=== PATIENT | female | born 1975 | race Caucasian/White ===

== ENCOUNTER → 2016-04-27 | Outpatient (CLI) | payer MEDICARE, MEDICAID ==
[~2016-04-27] MED LIST: /ESCI10TA PO; /ESOM40CA OR; ATIV0.5T3 PO; PAIN TOP; PROZ20CA11 PO; SOMA350T PO; TRAZ50TA PO; VOLT1GEL2 TOP; ZANT150T OR; ZOLO100T OR; ZOLO100T PO
[2016-04-27 13:00] LABS: BASO % 1.2 % (0.0-1.0); EOS # 0.2 K/mm3 (0.0-0.50); EOS % 4.4 % (0.0-3.0); LYMPH # 1.8 K/mm3 (1.5-4.5); LYMPH % 44.1 % (24.0-44.0); MEAN CORPUSCULAR HEMOGLOBIN 30.1 pg (27.0-33.0); MEAN CORPUSCULAR VOLUME 88.5 fl (80.0-96.0); MONO # 0.2 K/mm3 (0.0-0.8); NEUTROPHILS # 1.8 K/mm3 (1.8-7.7); NEUTROPHILS % 43.2 % (36.0-66.0); WHITE BLOOD COUNT 4.1 K/mm3 (4.0-10.0)
[2016-04-27 13:17] LABS: ALBUMIN/GLOBULIN RATIO 1.21 (1.00-1.93); ALKALINE PHOSPHATASE 68 U/L (45-117); ALT/SGPT 29 U/L (12-78); ANION GAP 8 MEQ/L (8-16); AST/SGOT 18 U/L (15-37); BILIRUBIN,TOTAL 0.3 MG/DL (0.2-1.0); BLOOD UREA NITROGEN 10 MG/DL (7-18); CALCIUM LEVEL 9.2 MG/DL (8.5-10.1); CARBON DIOXIDE LEVEL 29 MEQ/L (21-32); CHLORIDE LEVEL 105 MEQ/L (98-107); CHOLESTEROL LEVEL 209 MG/DL (<200); GLOMERULAR FILTRATION RATE > 60.0 (>58); GLUCOSE, FASTING 76 MG/DL (70-105); POTASSIUM SERUM 3.8 MEQ/L (3.5-5.1); SODIUM LEVEL 142 MEQ/L (136-145); TOTAL PROTEIN 7.3 GM/DL (6.4-8.2); TRIGLYCERIDES LEVEL 109 MG/DL (<150)
== END ==
LOC: M WUC 08:37
PROVIDERS: ATTEND Physician Assistant Medical
DX: E78.2 Mixed hyperlipidemia (principal); E55.9 Vitamin D deficiency, unspecified

== ENCOUNTER 2016-06-07 19:39 | Emergency (ER) | payer BC, MEDICARE, MEDICAID ==
[2016-06-07] MEDS ORDERED: ONDANSETRON 4MG/2ML VIAL (J2405) As Ordered ONE (21:46)
[2016-06-07] MEDS ORDERED: ONDANSETRON 4 MG ORAL DISINTEGRATING TAB (S0181) As Ordered ONE (23:03)
--- NOTE | 2016-06-07 23:13 | EDDOCDS ---
Nurse's Notes [facility] Name: Germaine Silva Age: 41 yrs Sex: Female : 1975 Arrival Date: 06/07/2016 Time: 19:39 Bed I1 / M1 Private MD: Cheri Harper C Diagnosis: Nausea and vomiting-likely viral gastroenteritis;Diarrhea, unspecified Presentation: 06/07 19:50 Presenting complaint: Patient states: nausea, vomiting, diarrhea, and chills. Adult af2 Sepsis Screening: The patient does not have new or worsening altered mentation. Patient's respiratory rate is less than 22. Systolic blood pressure is greater than 100. Patient has a qSOFA score of 0- Negative Sepsis Screen. Suicide/Homicide risk assessment- the patient denies having any suicidal and/or homicidal ideations and does not present with any other emotional, behavioral or mental health complaints. Status: Patient is not a coordinator of library services or dependent. Transition of care: patient was not received from another setting of care. 19:50 Acuity: DANE Level 3 af2 19:50 Method Of Arrival: Walkin/Carried/Asstd af2 Triage Assessment: 19:52 General: Appears in no apparent distress, Behavior is cooperative. Pain: Location: af2 abdomen Pain currently is 8 out of 10 on a pain scale. Pt Declines HIV testing. GI: Reports diarrhea, lower abdominal pain, nausea, vomiting. Historical: - Allergies: Erythromycin; - Home Meds: 1. Nexium 40 mg Oral cpDR 1 cap 2. Zantac 150 mg Oral cap 1 cap 2 times per day - PMHx: GERD; Arthritis; bulging disk; - PSHx: none; - Social history: Smoking status: Patient states was never smoker of tobacco. No barriers to communication noted, The patient speaks fluent Slovak. - Family history: Not pertinent. - : The pt / caregiver states he / she is not on anticoagulants. Home medication list is obtained from the patient. - Exposure Risk Screening:: None identified. Screenin:48 Screening information is obtained from the patient. Fall risk: No risks identified. jo3 Assistance ADL's: requires no assistance with activities of daily living. Abuse/DV Screen: The patient / caregiver reports he/she is: not in a situation that causes fear, pain or injury. Nutritional screening: No deficits noted. Advance Directives: There is no active DNR order. home support is adequate. Assessment: 20:50 General: Appears in no apparent distress, Behavior is appropriate for age, cooperative, sls1 Pt reports " feels like she is going to pass out" pt stood and laid on stretcher, denies sob or chest pain, reports feels faint due to vomiting. Awaiting provider eval. 21:48 General: Appears in no apparent distress, comfortable, Behavior is appropriate for age, jo3 cooperative, pleasant. Neurological: Level of Consciousness is awake, alert, Oriented to person, place, time. Respiratory: Airway is patent Respiratory effort is even, unlabored. GI: Abdomen is non- distended Bowel sounds present X 4 quads. Abd is soft and non tender X 4 quads. Reports nausea, vomiting. Derm: Skin is pink, warm & dry. 23:09 General: Appears in no apparent distress, comfortable, Behavior is cooperative, relayed [facility] request for zofran to take home to provider, medication obtained. States will meet her at exit for ride home. Vital Signs: 19:41 BP 95 / 67; Pulse 107; Resp 18 S; Temp 97.4(T); Pulse Ox 98% on R/A; Weight 67.13 kg gr2 (R); Height 5 ft. 4 in. (162.56 cm) (M); Pain 7/10; 20:15 BP 111 / 65; Pulse 99; Resp 18; Pulse Ox 100% on R/A; Pain 8/10; sew 22:36 BP 122 / 69; Pulse 87; Resp 18; Temp 98.8(O); Pulse Ox 98% on R/A; Pain 2/10; rn1 19:41 Body Mass Index 25.40 (67.13 kg, 162.56 cm) gr2 Vitals: 19:41 Log In Time: June 07, 2016 at 19:41. gr2 ED Course: 19:41 Patient visited by Edis Hernandze. gr2 19:41 Cheri Harper is Private Physician. gr2 19:41 Patient moved to Waiting gr2 19:43 Patient visited by Edis Hernandez. gr2 19:44 Patient moved to Pre RCE gr2 19:51 Triage Initiated af2 19:53 Patient visited by Sharron Metcalf RN. af2 20:14 Patient moved to Triage 1 sls1 20:15 Patient visited by Kelsey Vidales. sew 20:51 Patient visited by Gayle Resendiz RN. sls1 21:11 Benjamin Pandey PA-C is [facility]. ar2 21:11 Markell Hampton DO is Attending Physician. ar2 21:11 Patient visited by Benjamin Pandey PA-C. ar2 21:21 Patient moved to I1 / M1 af2 21:24 Sharron Metcalf,RN is Primary Nurse. af2 21:29 [facility] Payment Agreement was scanned into [employer] and attached to record. gjb 21:48 The patient / caregiver is instructed regarding the plan of care and ED course. jo3 21:48 Inserted saline lock: 20 gauge in left hand. No procedures done that require assistance.jo3 21:49 Patient visited by Heather Sneed RN. jo3 22:25 Cheri Harper is Referral Physician. ar2 23:09 Discontinued lock intact, bleeding controlled, pressure dressing applied, No cjh redness/swelling at site. Administered Medications: 21:47 Drug: Ondansetron 4 mg [ondansetron HCl 2 mg/mL intravenous solution (2 mL)] Route: jo3 IVP; Site: left hand; 21:48 Drug: NS 0.9% 1000 ml [sodium chloride 0.9 % intravenous solution] Route: IV; Rate: jo3 bolus; Site: left hand; 23:02 CANCELLED (Duplicate Order): Ondansetron ODT Oral Disintegrating Tablet 4 mg PO once cj 23:09 Drug: Ondansetron ODT 4 mg [ondansetron 4 mg disintegrating tablet (1 tabs)] Route: PO; [facility] Order Results: There are currently no results for this order. Outcome: 22:25 Discharge ordered by Provider. ar2 23:09 Discharge Assessment: Patient awake, alert and oriented x 3. No cognitive and/or cjh functional deficits noted. Patient verbalized understanding of disposition instructions. patient administered narcotics - no. The following High Risk Discharge criteria are identified: None. Discharged to home ambulatory. Condition: good Condition: stable Condition: improved. Discharge instructions given to patient, Instructed on discharge instructions, follow up and referral plans. medication usage, Demonstrated understanding of instructions, medications, Pt was receptive of discharge instructions/ teaching. Prescriptions given X 1. No special radiology studies were completed. Property :Personal belongings accompany Pt. 23:12 Patient left the ED. [facility] Signatures: Heather Sneed,RN RN Benjamin Green, JUICE PAGayle Lyn, RN RN sls1 Xena SmithRN RN [facility] Flash, Edis Aranda gr2 Sharron Metcalf RN RN af2 Kelechi Allen rn1 Nanda Johnson Corrections: (The following items were deleted from the chart) 23:12 23:09 General: Appears in no apparent distress, comfortable, Behavior is cooperative, [facility] relayed request for zofran to take home to provider, medication obtained. [facility] MTDD
--- NOTE | 2016-06-07 23:13 | EDDOCDS ---
Physician Documentation [facility] Name: Germaine Silva Age: 41 yrs Sex: Female : 1975 Arrival Date: 06/07/2016 Time: 19:39 Bed I1 / M1 Private MD: Cheri Harper C Disposition: 06/07/16 22:25 Discharged to Home/Self Care. Impression: Nausea and vomiting - likely viral gastroenteritis, Diarrhea, unspecified. - Condition is Stable. - Discharge Instructions: Viral Gastroenteritis. - Prescriptions for ZOFRAN ODT 4 mg Oral - dissolve 1 tablet by ORAL route every 8 hours As needed do not chew, do not swallow whole; 10 tablet. - Medication Reconciliation, Local Pharmacy Hours form. - Follow up: Cheri Harper; When: Call to arrange an appointment; Reason: Recheck today's complaints, Continuance of care. Follow up: Emergency Department; When: As needed; Reason: Worsening of conditions. - Problem is new. - Symptoms have improved. Historical: - Allergies: Erythromycin; - Home Meds: 1. Nexium 40 mg Oral cpDR 1 cap 2. Zantac 150 mg Oral cap 1 cap 2 times per day - PMHx: GERD; Arthritis; bulging disk; - PSHx: none; - Social history: Smoking status: Patient states was never smoker of tobacco. No barriers to communication noted, The patient speaks fluent Telugu. - Family history: Not pertinent. - : The pt / caregiver states he / she is not on anticoagulants. Home medication list is obtained from the patient. - Exposure Risk Screening:: None identified. Vital Signs: 06/07 19:41 BP 95 / 67; Pulse 107; Resp 18 S; Temp 97.4(T); Pulse Ox 98% on R/A; Weight 67.13 kg / gr2 148 lbs (R); Height 5 ft. 4 in. (162.56 cm) (M); Pain 7/10; 20:15 BP 111 / 65; Pulse 99; Resp 18; Pulse Ox 100% on R/A; Pain 8/10; sew 22:36 BP 122 / 69; Pulse 87; Resp 18; Temp 98.8(O); Pulse Ox 98% on R/A; Pain 2/10; rn1 19:41 Body Mass Index 25.40 (67.13 kg, 162.56 cm) gr2 MDM: 21:21 IV Saline Lock ordered. ar2 21:21 NS 0.9% 1000 ml IV at bolus once ordered. ar2 21:21 Ondansetron 4 mg IVP once ordered. ar2 21:28 Financial registration complete. [facility] : [facility] Payment Agreement was scanned into [employer] and attached to record. [facility] 23:02 Ondansetron ODT Oral Disintegrating Tablet 4 mg PO once; dispense one to go home [facility] ordered. Administered Medications: 21:47 Drug: Ondansetron 4 mg [ondansetron HCl 2 mg/mL intravenous solution (2 mL)] Route: jo3 IVP; Site: left hand; 21:48 Drug: NS 0.9% 1000 ml [sodium chloride 0.9 % intravenous solution] Route: IV; Rate: jo3 bolus; Site: left hand; 23:02 CANCELLED (Duplicate Order): Ondansetron ODT Oral Disintegrating Tablet 4 mg PO once [facility] 23:09 Drug: Ondansetron ODT 4 mg [ondansetron 4 mg disintegrating tablet (1 tabs)] Route: PO; [facility] Signatures: Heather Sneed RN RN jo3 Benjamin Pandey PA-C PA-C ar2 Xena Smith RN RN [facility] Sharron MetcalfRN RN roxanne2 Nanda Johnson The chart was reviewed and I authenticate all verbal orders and agree with the evaluation and treatment provided.Corrections: (The following items were deleted from the chart) 23:02 23:01 Ondansetron ODT Oral Disintegrating Tablet 4 mg PO once ordered. [address] Attachments: 21:29 [facility] Payment Agreement [facility] MTDD
--- NOTE | 2016-06-10 00:13 | EDDOCDS ---
Nurse's Notes [facility] Name: Germaine Sliva Age: 41 yrs Sex: Female : 1975 Arrival Date: 06/07/2016 Time: 19:39 Bed I1 / M1 Private MD: Cheri Harper C Diagnosis: Nausea and vomiting-likely viral gastroenteritis;Diarrhea, unspecified Presentation: 06/07 19:50 Presenting complaint: Patient states: nausea, vomiting, diarrhea, and chills. Adult af2 Sepsis Screening: The patient does not have new or worsening altered mentation. Patient's respiratory rate is less than 22. Systolic blood pressure is greater than 100. Patient has a qSOFA score of 0- Negative Sepsis Screen. Suicide/Homicide risk assessment- the patient denies having any suicidal and/or homicidal ideations and does not present with any other emotional, behavioral or mental health complaints. Status: Patient is not a career services officer or dependent. Transition of care: patient was not received from another setting of care. 19:50 Acuity: DANE Level 3 af2 19:50 Method Of Arrival: Walkin/Carried/Asstd af2 Triage Assessment: 19:52 General: Appears in no apparent distress, Behavior is cooperative. Pain: Location: af2 abdomen Pain currently is 8 out of 10 on a pain scale. Pt Declines HIV testing. GI: Reports diarrhea, lower abdominal pain, nausea, vomiting. Historical: - Allergies: Erythromycin; - Home Meds: 1. Nexium 40 mg Oral cpDR 1 cap 2. Zantac 150 mg Oral cap 1 cap 2 times per day - PMHx: GERD; Arthritis; bulging disk; - PSHx: none; - Social history: Smoking status: Patient states was never smoker of tobacco. No barriers to communication noted, The patient speaks fluent [place]. - Family history: Not pertinent. - : The pt / caregiver states he / she is not on anticoagulants. Home medication list is obtained from the patient. - Exposure Risk Screening:: None identified. Screenin:48 Screening information is obtained from the patient. Fall risk: No risks identified. jo3 Assistance ADL's: requires no assistance with activities of daily living. Abuse/DV Screen: The patient / caregiver reports he/she is: not in a situation that causes fear, pain or injury. Nutritional screening: No deficits noted. Advance Directives: There is no active DNR order. home support is adequate. Assessment: 20:50 General: Appears in no apparent distress, Behavior is appropriate for age, cooperative, sls1 Pt reports " feels like she is going to pass out" pt stood and laid on stretcher, denies sob or chest pain, reports feels faint due to vomiting. Awaiting provider eval. 21:48 General: Appears in no apparent distress, comfortable, Behavior is appropriate for age, jo3 cooperative, pleasant. Neurological: Level of Consciousness is awake, alert, Oriented to person, place, time. Respiratory: Airway is patent Respiratory effort is even, unlabored. GI: Abdomen is non- distended Bowel sounds present X 4 quads. Abd is soft and non tender X 4 quads. Reports nausea, vomiting. Derm: Skin is pink, warm & dry. 23:09 General: Appears in no apparent distress, comfortable, Behavior is cooperative, relayed [facility] request for zofran to take home to provider, medication obtained. States will meet her at exit for ride home. Vital Signs: 19:41 BP 95 / 67; Pulse 107; Resp 18 S; Temp 97.4(T); Pulse Ox 98% on R/A; Weight 67.13 kg gr2 (R); Height 5 ft. 4 in. (162.56 cm) (M); Pain 7/10; 20:15 BP 111 / 65; Pulse 99; Resp 18; Pulse Ox 100% on R/A; Pain 8/10; sew 22:36 BP 122 / 69; Pulse 87; Resp 18; Temp 98.8(O); Pulse Ox 98% on R/A; Pain 2/10; rn1 19:41 Body Mass Index 25.40 (67.13 kg, 162.56 cm) gr2 Vitals: 19:41 Log In Time: June 07, 2016 at 19:41. gr2 ED Course: 19:41 Patient visited by Edis Hernandez. gr2 19:41 Cheri Harper is Private Physician. gr2 19:41 Patient moved to Waiting gr2 19:43 Patient visited by Edis Hernandez. gr2 19:44 Patient moved to Pre RCE gr2 19:51 Triage Initiated af2 19:53 Patient visited by Sharron Metcalf RN. af2 20:14 Patient moved to Triage 1 sls1 20:15 Patient visited by Kelsey Vidales. sew 20:51 Patient visited by Gayle Resendiz RN. sls1 21:11 Benjamin Pand[facility]-C [facility]. ar2 21:11 Markell Hampton DO is Attending Physician. ar2 21:11 Patient visited by Benjamin Pandey PA-C. ar2 21:21 Patient moved to I1 / M1 af2 21:24 Sharron Metcalf,RN is Primary Nurse. af2 21:29 [facility] Payment Agreement was scanned into [employer] and attached to record. gjb 21:48 The patient / caregiver is instructed regarding the plan of care and ED course. jo3 21:48 Inserted saline lock: 20 gauge in left hand. No procedures done that require assistance.jo3 21:49 Patient visited by Heather Sneed RN. jo3 22:25 Cheri Harper is Referral Physician. ar2 23:09 Discontinued lock intact, bleeding controlled, pressure dressing applied, No cjh redness/swelling at site. 06/08 12:32 T-Sheet-- Draft Copy was scanned into [employer] and attached to record. gb Administered Medications: 06/07 21:47 Drug: Ondansetron 4 mg [ondansetron HCl 2 mg/mL intravenous solution (2 mL)] Route: jo3 IVP; Site: left hand; 21:48 Drug: NS 0.9% 1000 ml [sodium chloride 0.9 % intravenous solution] Route: IV; Rate: jo3 bolus; Site: left hand; 23:02 CANCELLED (Duplicate Order): Ondansetron ODT Oral Disintegrating Tablet 4 mg PO once cjh 23:09 Drug: Ondansetron ODT 4 mg [ondansetron 4 mg disintegrating tablet (1 tabs)] Route: PO; cjh Order Results: There are currently no results for this order. Outcome: 22:25 Discharge ordered by Provider. ar2 23:09 Discharge Assessment: Patient awake, alert and oriented x 3. No cognitive and/or cjh functional deficits noted. Patient verbalized understanding of disposition instructions. patient administered narcotics - no. The following High Risk Discharge criteria are identified: None. Discharged to home ambulatory. Condition: good Condition: stable Condition: improved. Discharge instructions given to patient, Instructed on discharge instructions, follow up and referral plans. medication usage, Demonstrated understanding of instructions, medications, Pt was receptive of discharge instructions/ teaching. Prescriptions given X 1. No special radiology studies were completed. Property :Personal belongings accompany Pt. 23:12 Patient left the ED. [facility] Signatures: Marita Perez, Reg Reg gb Heather Sneed,RN RN jo3 Benjamin Pandey PAAdama PA-Troy monreal2 Gayle Resendiz, RN RN sls1 Xena SmithRN RN [facility] Kelsey Vidales [place] gr2 Sharron MetcalfRN RN af2 Kelechi Allen rn1 Nanda Johnson Corrections: (The following items were deleted from the chart) 23:12 23:09 General: Appears in no apparent distress, comfortable, Behavior is cooperative, [facility] relayed request for zofran to take home to provider, medication obtained. [facility] Chart Complete MTDD
--- NOTE | 2016-06-10 00:13 | EDDOCDS ---
Physician Documentation [facility] Name: Germaine Silva Age: 41 yrs Sex: Female : 1975 Arrival Date: 06/07/2016 Time: 19:39 Bed I1 / M1 Private MD: Cheri Harper C Disposition: 06/07/16 22:25 Discharged to Home/Self Care. Impression: Nausea and vomiting - likely viral gastroenteritis, Diarrhea, unspecified. - Condition is Stable. - Discharge Instructions: Viral Gastroenteritis. - Prescriptions for ZOFRAN ODT 4 mg Oral - dissolve 1 tablet by ORAL route every 8 hours As needed do not chew, do not swallow whole; 10 tablet. - Medication Reconciliation, Local Pharmacy Hours form. - Follow up: Cheri Harper; When: Call to arrange an appointment; Reason: Recheck today's complaints, Continuance of care. Follow up: Emergency Department; When: As needed; Reason: Worsening of conditions. - Problem is new. - Symptoms have improved. Historical: - Allergies: Erythromycin; - Home Meds: 1. Nexium 40 mg Oral cpDR 1 cap 2. Zantac 150 mg Oral cap 1 cap 2 times per day - PMHx: GERD; Arthritis; bulging disk; - PSHx: none; - Social history: Smoking status: Patient states was never smoker of tobacco. No barriers to communication noted, The patient speaks fluent Pashto. - Family history: Not pertinent. - : The pt / caregiver states he / she is not on anticoagulants. Home medication list is obtained from the patient. - Exposure Risk Screening:: None identified. Vital Signs: 06/07 19:41 BP 95 / 67; Pulse 107; Resp 18 S; Temp 97.4(T); Pulse Ox 98% on R/A; Weight 67.13 kg / gr2 148 lbs (R); Height 5 ft. 4 in. (162.56 cm) (M); Pain 7/10; 20:15 BP 111 / 65; Pulse 99; Resp 18; Pulse Ox 100% on R/A; Pain 8/10; sew 22:36 BP 122 / 69; Pulse 87; Resp 18; Temp 98.8(O); Pulse Ox 98% on R/A; Pain 2/10; rn1 19:41 Body Mass Index 25.40 (67.13 kg, 162.56 cm) gr2 MDM: 21:21 IV Saline Lock ordered. ar2 21:21 NS 0.9% 1000 ml IV at bolus once ordered. ar2 21:21 Ondansetron 4 mg IVP once ordered. ar2 21:28 Financial registration complete. gj : [facility] Payment Agreement was scanned into [employer] and attached to record. [facility] 23:02 Ondansetron ODT Oral Disintegrating Tablet 4 mg PO once; dispense one to go home [facility] ordered. 06/08 12:32 T-Sheet-- Draft Copy was scanned into [employer] and attached to record. gb Administered Medications: 06/07 21:47 Drug: Ondansetron 4 mg [ondansetron HCl 2 mg/mL intravenous solution (2 mL)] Route: jo3 IVP; Site: left hand; 21:48 Drug: NS 0.9% 1000 ml [sodium chloride 0.9 % intravenous solution] Route: IV; Rate: jo3 bolus; Site: left hand; 23:02 CANCELLED (Duplicate Order): Ondansetron ODT Oral Disintegrating Tablet 4 mg PO once [facility] 23:09 Drug: Ondansetron ODT 4 mg [ondansetron 4 mg disintegrating tablet (1 tabs)] Route: PO; [facility] Signatures: Marita Perez, Jj Reg Heather DoradoRN RN jo3 Benjamin Pandey PA-C PA-C ar2 Xena Smith RN RN [facility] Sharron Metcalf RN RN roxanne2 Nanda Johnson [facility] The chart was reviewed and I authenticate all verbal orders and agree with the evaluation and treatment provided.Corrections: (The following items were deleted from the chart) 23:02 23:01 Ondansetron ODT Oral Disintegrating Tablet 4 mg PO once ordered. ar2 [facility] Attachments: :29 [facility] Payment Agreement [facility] 06/08 12:32 T-Sheet-- Draft Copy Chart Complete MTDD
--- NOTE | 2016-06-10 00:14 | EDDOCDS ---
Physician Documentation [facility] Name: Germaine Silva Age: 41 yrs Sex: Female : 1975 Arrival Date: 06/07/2016 Time: 19:39 Bed I1 / M1 Private MD: Cheri Harper C Disposition: 06/07/16 22:25 Discharged to Home/Self Care. Impression: Nausea and vomiting - likely viral gastroenteritis, Diarrhea, unspecified. - Condition is Stable. - Discharge Instructions: Viral Gastroenteritis. - Prescriptions for ZOFRAN ODT 4 mg Oral - dissolve 1 tablet by ORAL route every 8 hours As needed do not chew, do not swallow whole; 10 tablet. - Medication Reconciliation, Local Pharmacy Hours form. - Follow up: Cheri Harper; When: Call to arrange an appointment; Reason: Recheck today's complaints, Continuance of care. Follow up: Emergency Department; When: As needed; Reason: Worsening of conditions. - Problem is new. - Symptoms have improved. Historical: - Allergies: Erythromycin; - Home Meds: 1. Nexium 40 mg Oral cpDR 1 cap 2. Zantac 150 mg Oral cap 1 cap 2 times per day - PMHx: GERD; Arthritis; bulging disk; - PSHx: none; - Social history: Smoking status: Patient states was never smoker of tobacco. No barriers to communication noted, The patient speaks fluent Irish. - Family history: Not pertinent. - : The pt / caregiver states he / she is not on anticoagulants. Home medication list is obtained from the patient. - Exposure Risk Screening:: None identified. Vital Signs: 06/07 19:41 BP 95 / 67; Pulse 107; Resp 18 S; Temp 97.4(T); Pulse Ox 98% on R/A; Weight 67.13 kg / gr2 148 lbs (R); Height 5 ft. 4 in. (162.56 cm) (M); Pain 7/10; 20:15 BP 111 / 65; Pulse 99; Resp 18; Pulse Ox 100% on R/A; Pain 8/10; sew 22:36 BP 122 / 69; Pulse 87; Resp 18; Temp 98.8(O); Pulse Ox 98% on R/A; Pain 2/10; rn1 19:41 Body Mass Index 25.40 (67.13 kg, 162.56 cm) gr2 MDM: 21:21 IV Saline Lock ordered. ar2 21:21 NS 0.9% 1000 ml IV at bolus once ordered. ar2 21:21 Ondansetron 4 mg IVP once ordered. ar2 21:28 Financial registration complete. gj : [facility] Payment Agreement was scanned into [employer] and attached to record. [facility] 23:02 Ondansetron ODT Oral Disintegrating Tablet 4 mg PO once; dispense one to go home [facility] ordered. 06/08 12:32 T-Sheet-- Draft Copy was scanned into [employer] and attached to record. gb Administered Medications: 06/07 21:47 Drug: Ondansetron 4 mg [ondansetron HCl 2 mg/mL intravenous solution (2 mL)] Route: jo3 IVP; Site: left hand; 21:48 Drug: NS 0.9% 1000 ml [sodium chloride 0.9 % intravenous solution] Route: IV; Rate: jo3 bolus; Site: left hand; 23:02 CANCELLED (Duplicate Order): Ondansetron ODT Oral Disintegrating Tablet 4 mg PO once [facility] 23:09 Drug: Ondansetron ODT 4 mg [ondansetron 4 mg disintegrating tablet (1 tabs)] Route: PO; [facility] Signatures: Marita Perez, Jj Reg Heather DoradoRN RN jo3 Benjamin Pandey PA-C PA-C ar2 Xena Smith RN RN [facility] Sharron Metcalf RN RN roxanne2 Nanda Johnson [facility] The chart was reviewed and I authenticate all verbal orders and agree with the evaluation and treatment provided.Corrections: (The following items were deleted from the chart) 23:02 23:01 Ondansetron ODT Oral Disintegrating Tablet 4 mg PO once ordered. ar2 [facility] Attachments: :29 [facility] Payment Agreement [facility] 06/08 12:32 T-Sheet-- Draft Copy Chart Complete MTDD
== END 2016-06-07 23:12 | disposition home or self-care (01) ==
LOC: M ED 19:39
DX: A08.4 Viral intestinal infection, unspecified (principal); K21.9 Gastro-esophageal reflux disease without esophagitis; M19.90 Unspecified osteoarthritis, unspecified site; M51.9 Unspecified thoracic, thoracolumbar and lumbosacral intervertebral disc disorder; Z79.899 Other long term (current) drug therapy; Z88.1 Allergy status to other antibiotic agents
CPT/HCPCS: 96374; 99283; J2405

== ENCOUNTER → 2016-06-12 | Outpatient (CLI) | payer BC, MEDICARE, MEDICAID ==
--- NOTE | 2016-06-13 09:22 | REP ---
MRI LUMBAR SPINE WITHOUT CONTRAST: 06/12/2016. Clinical history: Low back pain for a least 5 years. Symptoms not improved with pain injections. Comparison: MRI 05/30/2013, x-ray 11/20/2011. Technique: Sagittal T1, T2 and STIR images with axial T1 and T2 sequences through the lumbar spine. Findings. The normal lordosis is maintained. The vertebral body heights and marrow signal are normal from T11-S1. Disc space is narrowed with slight loss of disc water signal at L5-S1 as a new finding compared to the prior examination. The other disc space heights are maintained except for slight narrowing at L3-4. Disc water signal maintained at L4-5 and above. T11-12, T12-L1 and L1-2 disc levels show no disc bulge or herniation and no spinal or foraminal stenosis. The conus terminates at the T12-L1 level. At L2-3, there is no significant disc bulge or herniation and no spinal or foraminal stenosis. At L 3-4, some hypertrophic facet change and ligamentum flavum hypertrophy, but the cross-sectional area of the canal was adequate. Minimal disc bulge flattening the ventral thecal sac, but the cross-sectional area of the canal was ample. Foramina are also ample. At L4-5, minimal disc bulge flattening the ventral thecal sac. Ligamentum flavum and facet hypertrophy with combined factors slightly diminishing the central canal cross-sectional area. Foramina are adequate with no nerve root compression and perineural fat still in place. At L5-S1, there is minimal disc bulge centrally, but no central canal or foraminal stenosis. Ligamentum flavum hypertrophy noted, but cross-sectional area of the canal ample and the foramina are adequate. Impression: 1. There is some degenerative disc change with minimal spinal stenosis at the L4-5 level, but the foramina were adequate. No nerve root compression in the central canal. 2. Minimal degenerative changes at the L3-4 and L5-S1 levels, not causing any significant spinal or foraminal stenosis. 3. Some new mild disc desiccation and loss of disc space height at L5-S1. Some hypertrophic facet changes of the lower most lumbar levels, unchanged. No new findings otherwise. Stable. Signed by Cruz Parrish MD 06/13/2016 09:29 P
== END ==
LOC: M RAD 14:58
PROVIDERS: ATTEND Physician Assistant Medical
DX: M54.5 Low back pain (principal)

== ENCOUNTER → 2016-09-10 | Outpatient (REF) | payer BC, MEDICARE, MEDICAID | LOC: M LAB REF 12:37 | PROVIDERS: ATTEND Surgery | DX: D17.23 Benign lipomatous neoplasm of skin and subcutaneous tissue of right leg (principal) ==

== ENCOUNTER 2016-09-15 09:15 | Outpatient (RCR) | payer BC, MEDICARE, MEDICAID | END 2016-09-16 | LOC: M PT 09:15 | PROVIDERS: ATTEND Physician Assistant Medical | DX: Z51.89 Encounter for other specified aftercare (principal); M54.5 Low back pain | CPT/HCPCS: 97110; 97140; 97162; G0283; G8978; G8979 ==

== ENCOUNTER → 2016-10-09 | Outpatient (CLI) | payer BC, MEDICARE, MEDICAID ==
[2016-10-09 14:13] LABS: ALBUMIN 4.2 GM/DL (3.2-5.2); ALKALINE PHOSPHATASE 48 U/L (45-117); ALT/SGPT 24 U/L (12-78); ANION GAP 9 MEQ/L (8-16); AST/SGOT 20 U/L (15-37); BILIRUBIN,TOTAL 0.6 MG/DL (0.2-1.0); BLOOD UREA NITROGEN 7 MG/DL (7-18); CALCIUM LEVEL 9.3 MG/DL (8.5-10.1); CARBON DIOXIDE LEVEL 27 MEQ/L (21-32); CHLORIDE LEVEL 104 MEQ/L (98-107); CHOLESTEROL LEVEL 199 MG/DL (<200); CREATININE FOR GFR 0.89 MG/DL (0.55-1.02); GLOMERULAR FILTRATION RATE > 60.0 (>58); GLUCOSE, FASTING 80 MG/DL (70-105); POTASSIUM SERUM 3.9 MEQ/L (3.5-5.1); SODIUM LEVEL 140 MEQ/L (136-145); TOTAL PROTEIN 7.7 GM/DL (6.4-8.2); TRIGLYCERIDES LEVEL 58 MG/DL (<150)
== END ==
LOC: M SMT 09:46
PROVIDERS: ATTEND Physician Assistant Medical
DX: E78.2 Mixed hyperlipidemia (principal); E55.9 Vitamin D deficiency, unspecified; E03.9 Hypothyroidism, unspecified

== ENCOUNTER 2016-10-15 13:00 | Outpatient (RCR) | payer BC, MEDICARE, MEDICAID | END 2016-10-16 | LOC: M PT 13:00 | PROVIDERS: ATTEND Physician Assistant Medical | DX: Z51.89 Encounter for other specified aftercare (principal); M54.5 Low back pain | CPT/HCPCS: 97110; 97140; G0283; G8978; G8979 ==

== ENCOUNTER 2016-10-22 09:13 | Outpatient (RCR) | payer BC, MEDICARE, MEDICAID | END 2016-11-16 | LOC: M PT 09:13 | PROVIDERS: ATTEND Physician Assistant Medical | DX: M54.5 Low back pain (principal) ==

== ENCOUNTER → 2017-06-23 | Outpatient (CLI) | payer BC, MEDICARE, MEDICAID | LOC: M RAD 13:53 | DX: Z12.31 Encounter for screening mammogram for malignant neoplasm of breast (principal) | CPT/HCPCS: 77067 ==

== ENCOUNTER → 2017-06-25 | Outpatient (CLI) | payer BC, MEDICARE, MEDICAID ==
[2017-06-25 10:34] LABS: ALBUMIN 4.2 GM/DL (3.2-5.2); ALBUMIN/GLOBULIN RATIO 1.31 (1.00-1.93); ALKALINE PHOSPHATASE 64 U/L (45-117); ALT/SGPT 32 U/L (12-78); ANION GAP 7 MEQ/L (8-16); AST/SGOT 25 U/L (7-37); BILIRUBIN,TOTAL 0.6 MG/DL (0.2-1.0); BLOOD UREA NITROGEN 10 MG/DL (7-18); CALCIUM LEVEL 8.9 MG/DL (8.5-10.1); CARBON DIOXIDE LEVEL 29 MEQ/L (21-32); CHLORIDE LEVEL 105 MEQ/L (98-107); CHOLESTEROL LEVEL 177 MG/DL (<200); CHOLESTEROL RISK RATIO 2.723 (<5); CREATININE FOR GFR 0.77 MG/DL (0.55-1.30); FREE T4 0.98 NG/DL (0.76-1.46); GLOMERULAR FILTRATION RATE > 60.0 (>58); GLUCOSE, FASTING 67 MG/DL (70-100); HDL CHOLESTEROL 65 MG/DL (>40); LDL CHOLESTEROL 98.8 MG/DL (<100); NON-HDL-C 112 MG/DL; POTASSIUM SERUM 3.7 MEQ/L (3.5-5.1); SODIUM LEVEL 141 MEQ/L (136-145); TOTAL PROTEIN 7.4 GM/DL (6.4-8.2); TRIGLYCERIDES LEVEL 66 MG/DL (<150)
[2017-06-25 10:42] LABS: BASO # 0.1 10^3/uL (0.0-0.2); BASO % 0.9 % (0.0-1.0); EOS # 0.1 10^3/uL (0.0-0.50); EOS % 1.1 % (0.0-3.0); HEMATOCRIT 36.9 % (36.0-47.0); HEMOGLOBIN 12.8 g/dl (12.0-16.0); IMMATURE GRANULOCYTE % 0.3 % (0-3.0); LYMPH # 2.4 10^3/uL (1.5-4.5); LYMPH % 37.5 % (24.0-44.0); MEAN CORPUSCULAR HEMOGLOBIN 30.5 pg (27.0-33.0); MEAN CORPUSCULAR HGB CONC 34.7 g/dl (32.0-36.5); MEAN CORPUSCULAR VOLUME 87.9 fl (80.0-96.0); MONO # 0.5 10^3/uL (0.0-0.8); MONO % 7.8 % (0.0-5.0); NEUTROPHILS # 3.3 10^3/uL (1.8-7.7); NEUTROPHILS % 52.4 % (36.0-66.0); PLATELET COUNT, AUTOMATED 268 10^3/uL (150-450); RED CELL DISTRIBUTION WIDTH 11.6 % (11.5-14.5); WHITE BLOOD COUNT 6.3 10^3/uL (4.0-10.0)
[2017-06-25 11:37] LABS: TOTAL 25(OH) VITAMIN D 27.6 NG/ML (30.0-100.0)
[2017-06-28 00:06] LABS: H PYLORI STOOL ANTIGEN Negative (Negative)
== END ==
LOC: M LAB 08:23
DX: E55.9 Vitamin D deficiency, unspecified (principal)

== ENCOUNTER → 2018-07-14 | Outpatient (REF) | payer BC, MEDICARE ==
[2018-07-14 12:58] LABS: HEMATOCRIT 39.4 % (36.0-47.0); HEMOGLOBIN 13.1 g/dl (12.0-15.5); MEAN CORPUSCULAR HEMOGLOBIN 29.9 pg (27.0-33.0); MEAN CORPUSCULAR HGB CONC 33.2 g/dl (32.0-36.5); PLATELET COUNT, AUTOMATED 256 10^3/uL (150-450); RED BLOOD COUNT 4.38 10^6/uL (4.00-5.40); WHITE BLOOD COUNT 4.8 10^3/uL (4.0-10.0)
[2018-07-14 13:36] LABS: ALBUMIN 4.4 GM/DL (3.2-5.2); ALT/SGPT 25 U/L (12-78); BILIRUBIN,TOTAL 0.6 MG/DL (0.2-1.0); BLOOD UREA NITROGEN 8 MG/DL (7-18); CALCIUM LEVEL 9.2 MG/DL (8.5-10.1); CARBON DIOXIDE LEVEL 29 MEQ/L (21-32); CHLORIDE LEVEL 103 MEQ/L (98-107); CHOLESTEROL LEVEL 213 MG/DL (<200); CHOLESTEROL RISK RATIO 2.878 (<5); FREE T4 1.09 NG/DL (0.76-1.46); GLOMERULAR FILTRATION RATE > 60.0 (>58); GLUCOSE, FASTING 72 MG/DL (70-100); HDL CHOLESTEROL 74 MG/DL (>40); LDL CHOLESTEROL 122 MG/DL (<100); NON-HDL-C 139 MG/DL; POTASSIUM SERUM 3.6 MEQ/L (3.5-5.1); SODIUM LEVEL 139 MEQ/L (136-145); TOTAL PROTEIN 7.4 GM/DL (6.4-8.2); TRIGLYCERIDES LEVEL 85 MG/DL (<150)
[2018-07-14 13:38] LABS: TOTAL 25(OH) VITAMIN D 26.2 NG/ML (30.0-100.0)
== END ==
LOC: M SFHCPLAZ 08:42
PROVIDERS: ATTEND Physician Assistant
DX: Z13.220 Encounter for screening for lipoid disorders (principal); F41.9 Anxiety disorder, unspecified; E55.9 Vitamin D deficiency, unspecified

== ENCOUNTER → 2018-07-21 | Outpatient (CLI) | payer BC, MEDICARE ==
[~2018-07-21] MED LIST changes: -/ESCI10TA PO; -/ESOM40CA OR; +LEXA1TAB PO; +NEXI1CAP3 OR
--- NOTE | 2018-07-21 10:14 | REPMRS ---
Patient History The patient states she has not had a clinical breast exam in over a year. No known family history of cancer. Taking hormonal contraceptives for 3 years. 3D TOMOSYNTHESIS WAS PERFORMED. Digital Mammo Screening Bilat: July 21, 2018 - Exam #: [id number] Bilateral CC and MLO view(s) were taken. Technologist: Radha Guaman, Technologist Prior study comparison: June 23, 2017, bilateral digital mammo screening bilat performed at [facility]. August 30, 2013, digital mammo diagnostic bilateral performed at [facility]. FINDINGS: The breast tissue is heterogeneously dense. This may lower the sensitivity of mammography. There has been no change in the appearance of the mammogram from the prior studies. There is a moderate amount of residual fibroglandular tissue which is fairly symmetric. There is no interval development of dominant mass, areas of architectural distortion, or clustered microcalcification typical of malignancy. Assessment: BI-RADS/ACR category 1 mammogram. Negative Mammogram. Recommendation Routine screening mammogram in 1 year (for women over age 40). This mammogram was interpreted with the aid of an FDA-approved computer-aided dectection system. Electronically Signed By: Medardo Lugo MD 07/21/18 [id number]
== END ==
LOC: M RAD 09:31
PROVIDERS: ATTEND Physician Assistant
DX: Z12.31 Encounter for screening mammogram for malignant neoplasm of breast (principal)

== ENCOUNTER 2018-11-08 10:57 | Emergency (ER) | payer BC, MEDICARE ==
[~2018-11-08] VITALS: Ht 162.6 cm; Wt 64.5 kg
[2018-11-08] MEDS ORDERED: ACETAMINOPHEN 500 MG TAB PO ONE (12:15)
[2018-11-08] MEDS ORDERED: NS 1,000 ML IV ONE (12:15)
[2018-11-08] MEDS ORDERED: KETOROLAC 30 MG/ML VIAL (J1885) IV ONE (12:15)
[2018-11-08] MEDS ORDERED: METOCLOPRAMIDE INJ 10MG/2ML VIAL (J2765) IV ONE (12:15)
[2018-11-08] MEDS ORDERED: diphenhydrAMINE INJ 50MG/ML VIAL (J1200) IV ONE (12:15)
[2018-11-08 13:53] VITALS: BP 119/71
== END 2018-11-08 14:08 | disposition home or self-care (01) ==
LOC: M ED 10:57
DX: G44.209 Tension-type headache, unspecified, not intractable (principal); F41.9 Anxiety disorder, unspecified; F32.9 Major depressive disorder, single episode, unspecified; R12 Heartburn; Z97.5 Presence of (intrauterine) contraceptive device; Z82.0 Family history of epilepsy and other diseases of the nervous system; Z88.1 Allergy status to other antibiotic agents
CPT/HCPCS: 96374; 96375; 99284; J1200; J1885; J2765

== ENCOUNTER → 2019-01-07 | Outpatient (REF) | payer BC, MEDICARE ==
[2019-01-07 21:36] LABS: BASO # 0.1 10^3/uL (0.0-0.2); BASO % 0.9 % (0.0-1.0); EOS # 0.1 10^3/uL (0.0-0.5); EOS % 1.5 % (0.0-3.0); HEMATOCRIT 36.4 % (36.0-47.0); HEMOGLOBIN 12.3 g/dl (12.0-15.5); LYMPH # 2.7 10^3/uL (1.5-5.0); MEAN CORPUSCULAR HEMOGLOBIN 30.1 pg (27.0-33.0); MEAN CORPUSCULAR HGB CONC 33.8 g/dl (32.0-36.5); MEAN CORPUSCULAR VOLUME 89.2 fl (80.0-96.0); MONO # 0.5 10^3/uL (0.0-0.8); MONO % 6.6 % (0.0-5.0); NEUTROPHILS # 3.5 10^3/uL (1.5-8.5); NEUTROPHILS % 50.9 % (36.0-66.0); PLATELET COUNT, AUTOMATED 238 10^3/uL (150-450); RED BLOOD COUNT 4.08 10^6/uL (4.00-5.40); WHITE BLOOD COUNT 6.8 10^3/uL (4.0-10.0)
[2019-01-07 22:08] LABS: ALBUMIN 3.6 GM/DL (3.2-5.2); ALT/SGPT 27 U/L (12-78); BILIRUBIN,TOTAL 0.3 MG/DL (0.2-1.0); BLOOD UREA NITROGEN 10 MG/DL (7-18); CARBON DIOXIDE LEVEL 25 MEQ/L (21-32); CHLORIDE LEVEL 107 MEQ/L (98-107); CREATININE FOR GFR 0.76 MG/DL (0.55-1.30); GLOMERULAR FILTRATION RATE > 60.0 (>58); GLUCOSE, FASTING 94 MG/DL (70-100); POTASSIUM SERUM 3.7 MEQ/L (3.5-5.1); SODIUM LEVEL 140 MEQ/L (136-145); TOTAL PROTEIN 6.6 GM/DL (6.4-8.2)
== END ==
LOC: M LAB REF 13:57
PROVIDERS: ATTEND Physician Assistant
DX: R60.9 Edema, unspecified (principal)

== ENCOUNTER → 2019-01-20 | Outpatient (REF) | payer BC, MEDICARE ==
[2019-01-25 08:20] LABS: HPV HYBRID CAPTURE II Positive (Negative)
== END ==
LOC: M SFHCPLAZ 14:22
PROVIDERS: ATTEND Family Medicine
DX: Z12.4 Encounter for screening for malignant neoplasm of cervix (principal); R87.810 Cervical high risk human papillomavirus (HPV) DNA test positive
CPT/HCPCS: 87624; G0123

== ENCOUNTER → 2020-03-22 | Outpatient (REF) | payer BC, MEDICARE | LOC: M SFHCWAGY 14:14 | PROVIDERS: ATTEND Family Medicine | DX: Z86.19 Personal history of other infectious and parasitic diseases (principal) ==

== ENCOUNTER → 2020-03-29 | Outpatient (REF) | payer BC, MEDICARE ==
[2020-03-29 13:16] LABS: CHOLESTEROL RISK RATIO 2.632 (<5); THYROID STIMULATING HORMONE 1.25 uIU/ML (0.358-3.740)
== END ==
LOC: M PLALAB 08:28
PROVIDERS: ATTEND Family Medicine
DX: N92.6 Irregular menstruation, unspecified (principal); Z13.220 Encounter for screening for lipoid disorders

== ENCOUNTER → 2020-04-29 | Outpatient (CLI) | payer SELFPAY | LOC: M LABSMTC 13:25 | PROVIDERS: ATTEND Pediatrics | DX: Z20.822 Contact with and (suspected) exposure to COVID-19 (principal) ==

== ENCOUNTER → 2020-05-14 | Outpatient (REF) | payer BC, MEDICARE | LOC: M SFHCPLAZ 13:44 | PROVIDERS: ATTEND Family Medicine | DX: D23.5 Other benign neoplasm of skin of trunk (principal) ==

== ENCOUNTER → 2020-10-25 | Outpatient (CLI) | payer BC, MEDICARE | LOC: M WHC 11:10 | PROVIDERS: ATTEND Family Medicine | DX: R92.2 Inconclusive mammogram (principal); N63.15 Unspecified lump in the right breast, overlapping quadrants ==

== ENCOUNTER → 2020-11-05 | Outpatient (CLI) | payer BC ==
--- NOTE | 2020-11-05 15:28 | REP ---
INDICATION: ADDITIONAL VIEWS RT BREAST. COMPARISON: Comparison mammography October 25, 2020 was BI-RADS category 0 for a possible nodular density in the retroareolar region. Comparison is also made with the July 21, 2018 and June 23, 2017 prior images. TECHNIQUE: Magnified focal spot-compression CC, mL, and MLO views of the right breast are obtained. 3D tomography in the mL projection is deployed. This mammogram was interpreted with the aid of an FDA-approved computer-aided detection system. FINDINGS: Breast parenchyma is again noted to be heterogeneously dense. The area in question on the screening study compresses away to stromal elements which are felt to be unchanged from the remote prior comparison studies. No suspicious nodule or camilo density is appreciated. No spiculation or microcalcification is seen. The Volpara volumetric breast density pattern is C. : IMPRESSION: BIRADS/ACR category 1 negative right breast mammographic findings.. This patient's Tyrer-Cuzick lifetime breast cancer risk assessment score is 12.2%. RECOMMENDATION: Repeat screening mammography recommended 1 year (for women over 40). The patient letter being requested is M1 dense. <Electronically signed by Stan Guadarrama > 11/05/20 [id number]
== END ==
LOC: M WHC 14:49
PROVIDERS: ATTEND Family Medicine
DX: R92.2 Inconclusive mammogram (principal)

== ENCOUNTER → 2021-08-22 | Outpatient (CLI) | payer BC, MEDICARE | LOC: M WHC 10:24 | PROVIDERS: ATTEND Advanced Practice Midwife | DX: Z30.431 Encounter for routine checking of intrauterine contraceptive device (principal) ==

== ENCOUNTER → 2021-09-03 | Outpatient (CLI) | payer BC, MEDICARE ==
[~2021-09-03] MED LIST changes: +ESOM40CA35 PO; +IBUP80TA PO; +PARO5TAB PO
== END ==
LOC: M LABSMTC 09:11
PROVIDERS: ATTEND Anesthesiology
DX: Z01.812 Encounter for preprocedural laboratory examination (principal); Z20.822 Contact with and (suspected) exposure to COVID-19

== ENCOUNTER 2021-09-05 06:59 | Day surgery (SDC) | payer BC, MEDICARE ==
[~2021-09-05] VITALS: Ht 162.6 cm; Wt 67.5 kg
[~2021-09-05 06:59] MED LIST changes: +LR 1,000 ML IV ONE
[2021-09-05] MEDS ORDERED: LIDOCAINE 2% 100MG/5ML SDV (FOR ANES.) As Ordered ONE (07:25)
[2021-09-05] MEDS ORDERED: dexameTHASONE 4 MG/ML 1ML VIAL (J1100 PER 1MG) As Ordered ONE (07:25)
[2021-09-05] MEDS ORDERED: MIDAZOLAM INJ 2MG/2ML VIAL (J2250 PER 1MG) As Ordered ONE (07:25)
[2021-09-05] MEDS ORDERED: ONDANSETRON 4MG/2ML VIAL As Ordered ONE (07:25)
[2021-09-05] MEDS ORDERED: KETOROLAC 60MG 2ML VIAL As Ordered ONE (07:25)
[2021-09-05] MEDS ORDERED: propofoL 200 MG/20 ML VIAL As Ordered ONE (07:25)
[2021-09-05] MEDS ORDERED: fentaNYL 100 MCG/2 ML INJECTION As Ordered ONE (07:26)
[2021-09-05] MEDS ORDERED: LIDOCAINE 5% OINT 30GM TUBE As Ordered ONE (07:33)
[2021-09-05] MEDS ORDERED: LEVONORGESTREL 52MG (MIRENA) IUD As Ordered ONE (07:39)
[2021-09-05] MEDS ORDERED: SCOPOLAMINE 1MG TRANSDERMAL PATCH TOP ONE (07:45)
[2021-09-05 07:56] LABS: HEMATOCRIT 39.8 % (36.0-47.0); HEMOGLOBIN 13.5 g/dl (12.0-15.5); MEAN CORPUSCULAR HEMOGLOBIN 30.5 pg (27.0-33.0); MEAN CORPUSCULAR HGB CONC 33.9 g/dl (32.0-36.5); PLATELET COUNT, AUTOMATED 249 10^3/uL (150-450); RED BLOOD COUNT 4.42 10^6/uL (4.00-5.40); WHITE BLOOD COUNT 4.2 10^3/uL (4.0-10.0)
[2021-09-05] MEDS ORDERED: oxyCODONE 5MG TAB PO PRN (09:50)
[2021-09-05] MEDS ORDERED: HYDROMORPHONE HCL 0.5 MG/ 0.5 ML SYRINGE (J1170 PER 1) IV PRN (09:50)
[2021-09-05] MEDS ORDERED: ONDANSETRON 4MG/2ML VIAL IV PRN (09:50)
[2021-09-05] MEDS ORDERED: LR 1,000 ML IV SCH (09:50)
[2021-09-05] MEDS ORDERED: fentaNYL 100 MCG/2 ML INJECTION IV PRN (09:50)
[2021-09-05 10:21] VITALS: BP 110/68
== END 2021-09-05 10:24 | disposition home or self-care (01) ==
LOC: M SDC 06:59
PROVIDERS: ATTEND Obstetrics & Gynecology
DX: T83.39XA Other mechanical complication of intrauterine contraceptive device, initial encounter (principal); R12 Heartburn; Z88.8 Allergy status to other drugs, medicaments and biological substances; Z79.899 Other long term (current) drug therapy
CPT/HCPCS: 36415; 58300; 58301; 81025; 85027; 86850; 86900; 86901; J1100; J1885; J2250; J2405; J3010; J7298

== ENCOUNTER → 2022-03-02 | Outpatient (CLI) | payer BC, MEDICARE ==
[~2022-03-02] MED LIST changes: -LR 1,000 ML IV ONE
== END ==
LOC: M LABSMTC 11:34
PROVIDERS: ATTEND Anesthesiology
DX: Z01.812 Encounter for preprocedural laboratory examination (principal); Z11.52 Encounter for screening for COVID-19

== ENCOUNTER → 2022-04-22 | Outpatient (CLI) | payer BC, MEDICARE ==
[2022-04-22 12:41] LABS: BASO # 0.1 10^3/uL (0.0-0.2); BASO % 2.1 % (0.0-1.0); EOS # 0.1 10^3/uL (0.0-0.5); EOS % 2.1 % (0.0-3.0); HEMATOCRIT 41.1 % (36.0-47.0); HEMOGLOBIN 13.5 g/dl (12.0-15.5); LYMPH # 2.2 10^3/uL (1.5-5.0); LYMPH % 50.6 % (24.0-44.0); MEAN CORPUSCULAR HEMOGLOBIN 29.9 pg (27.0-33.0); MEAN CORPUSCULAR HGB CONC 32.8 g/dl (32.0-36.5); MEAN CORPUSCULAR VOLUME 91.1 fl (80.0-96.0); MONO # 0.4 10^3/uL (0.0-0.8); MONO % 9.5 % (2.0-8.0); NEUTROPHILS # 1.5 10^3/uL (1.5-8.5); NEUTROPHILS % 35.5 % (36.0-66.0); PLATELET COUNT, AUTOMATED 268 10^3/uL (150-450); RED BLOOD COUNT 4.51 10^6/uL (4.00-5.40); WHITE BLOOD COUNT 4.3 10^3/uL (4.0-10.0)
[2022-04-22 13:09] LABS: ALBUMIN 4.1 G/DL (3.2-5.2); ALKALINE PHOSPHATASE 50 U/L (46-116); ALT/SGPT 24 U/L (7.0-40); AST/SGOT 26 U/L (<34); BILIRUBIN,TOTAL 0.6 MG/DL (0.3-1.2); BLOOD UREA NITROGEN 11 MG/DL (9-23); CALCIUM LEVEL 9.7 MG/DL (8.5-10.1); CARBON DIOXIDE LEVEL 27 MMOL/L (20-31); CHLORIDE LEVEL 104 MMOL/L (98-107); CHOLESTEROL LEVEL 194 MG/DL (<200); CHOLESTEROL RISK RATIO 2.59 (<5); CREATININE FOR GFR 0.75 MG/DL (0.55-1.30); GLOMERULAR FILTRATION RATE > 60.0 (>58); GLUCOSE, FASTING 75 MG/DL (60-100); HDL CHOLESTEROL 74.9 MG/DL (>40); LDL CHOLESTEROL 103.1 MG/DL (<100); NON-HDL-C 119 MG/DL; POTASSIUM SERUM 4.2 MMOL/L (3.5-5.1); SODIUM LEVEL 142 MMOL/L (136-145); TOTAL PROTEIN 6.8 G/DL (5.7-8.2); TRIGLYCERIDES LEVEL 80 MG/DL (<150)
[2022-04-22 13:10] LABS: THYROID STIMULATING HORMONE 1.038 uIU/ML (0.55-4.78)
[2022-04-22 13:11] LABS: FREE T4 1.09 NG/DL (0.89-1.76); TOTAL 25(OH) VITAMIN D 18.8 NG/ML (20.0-100.0)
== END ==
LOC: M WUC 09:07
PROVIDERS: ATTEND Nurse Practitioner Family
DX: F32.9 Major depressive disorder, single episode, unspecified (principal); E78.2 Mixed hyperlipidemia; E55.9 Vitamin D deficiency, unspecified

== ENCOUNTER → 2022-05-05 | Outpatient (CLI) | payer BC, MEDICARE | LOC: M LABSMTC 09:07 | PROVIDERS: ATTEND Anesthesiology | DX: Z01.818 Encounter for other preprocedural examination (principal) ==

== ENCOUNTER 2022-05-18 10:00 | Outpatient (RCR) | payer BC, MEDICARE | END 2022-05-19 | LOC: M PT 10:00 | PROVIDERS: ATTEND Nurse Practitioner Family | DX: M51.37 Other intervertebral disc degeneration, lumbosacral region (principal) ==

== ENCOUNTER → 2022-06-16 | Outpatient (RCR) | payer BC, MEDICARE | LOC: M PT 06-01 09:47 | PROVIDERS: ATTEND Nurse Practitioner Family | DX: M51.37 Other intervertebral disc degeneration, lumbosacral region (principal) ==

== ENCOUNTER 2022-07-09 09:45 | Outpatient (RCR) | payer BC, MEDICARE | END 2022-07-17 | LOC: M PT 09:45 | PROVIDERS: ATTEND Nurse Practitioner Family | DX: M51.37 Other intervertebral disc degeneration, lumbosacral region (principal) ==

== ENCOUNTER 2022-08-12 10:31 | Outpatient (RCR) | payer BC, MEDICARE | END 2022-08-16 | LOC: M PT 10:31 | PROVIDERS: ATTEND Nurse Practitioner Family | DX: M51.37 Other intervertebral disc degeneration, lumbosacral region (principal) ==

== ENCOUNTER 2022-09-04 12:23 | Day surgery (SDC) | payer BC, MEDICARE ==
[~2022-09-04] VITALS: Ht 162.6 cm; Wt 66.5 kg
[~2022-09-04 12:23] MED LIST changes: +IBUP-1022 PO; +NS 1,000 ML IV ONE
[2022-09-04] MEDS ORDERED: MIDAZOLAM INJ 2MG/2ML VIAL As Ordered ONE (14:28)
[2022-09-04] MEDS ORDERED: propofoL 200 MG/20 ML VIAL As Ordered ONE (14:28)
[2022-09-04 14:59] VITALS: BP 120/73
== END 2022-09-04 15:05 | disposition home or self-care (01) ==
LOC: M OPP 12:23
PROVIDERS: ATTEND Internal Medicine Gastroenterology
DX: R12 Heartburn (principal); K44.9 Diaphragmatic hernia without obstruction or gangrene; Z79.1 Long term (current) use of non-steroidal anti-inflammatories (NSAID); Z79.899 Other long term (current) drug therapy; Z88.1 Allergy status to other antibiotic agents
CPT/HCPCS: 43235; J2250

== ENCOUNTER 2022-09-08 10:37 | Outpatient (RCR) | payer BC, MEDICARE ==
[~2022-09-08 10:37] MED LIST changes: -NS 1,000 ML IV ONE
== END 2022-09-16 ==
LOC: M PT 10:37
PROVIDERS: ATTEND Nurse Practitioner Family
DX: M51.37 Other intervertebral disc degeneration, lumbosacral region (principal)

== ENCOUNTER 2022-09-28 10:34 | Outpatient (RCR) | payer BC, MEDICARE | END 2022-10-16 | LOC: M PT 10:34 | PROVIDERS: ATTEND Nurse Practitioner Family | DX: M51.37 Other intervertebral disc degeneration, lumbosacral region (principal) ==

== ENCOUNTER → 2023-04-06 | Outpatient (CLI) | payer BC, MEDICARE | LOC: M WHC 15:05 | PROVIDERS: ATTEND Advanced Practice Midwife | DX: Z12.31 Encounter for screening mammogram for malignant neoplasm of breast (principal) ==

== ENCOUNTER → 2023-06-04 | Outpatient (CLI) | payer BC, MEDICARE ==
[2023-06-04 13:04] LABS: BASO # 0.1 10^3/uL (0.0-0.2); BASO % 1.2 % (0.0-1.0); EOS # 0.1 10^3/uL (0.0-0.5); EOS % 1.2 % (0.0-3.0); HEMATOCRIT 41.9 % (36.0-47.0); HEMOGLOBIN 13.9 g/dl (12.0-15.5); LYMPH # 2.7 10^3/uL (1.5-5.0); LYMPH % 45.5 % (24.0-44.0); MEAN CORPUSCULAR HEMOGLOBIN 29.1 pg (27.0-33.0); MEAN CORPUSCULAR HGB CONC 33.2 g/dl (32.0-36.5); MEAN CORPUSCULAR VOLUME 87.7 fl (80.0-96.0); MONO # 0.4 10^3/uL (0.0-0.8); NEUTROPHILS # 2.7 10^3/uL (1.5-8.5); NEUTROPHILS % 45.9 % (36.0-66.0); PLATELET COUNT, AUTOMATED 268 10^3/uL (150-450); RED BLOOD COUNT 4.78 10^6/uL (4.00-5.40)
[2023-06-04 13:15] LABS: HEMOGLOBIN A1c 5.2 % (4.0-6.0)
[2023-06-04 13:26] LABS: THYROID STIMULATING HORMONE 1.102 uIU/ML (0.55-4.78); TOTAL 25(OH) VITAMIN D 21.4 NG/ML (20.0-100.0)
[2023-06-04 13:29] LABS: FREE T4 1.08 NG/DL (0.89-1.76)
[2023-06-04 13:30] LABS: ALBUMIN 4.3 G/DL (3.2-5.2); ALKALINE PHOSPHATASE 70 U/L (46-116); ALT/SGPT 41 U/L (7.0-40); AST/SGOT 30 U/L (<34); BILIRUBIN,TOTAL 0.5 MG/DL (0.3-1.2); BLOOD UREA NITROGEN 16 MG/DL (9-23); CALCIUM LEVEL 9.5 MG/DL (8.5-10.1); CARBON DIOXIDE LEVEL 28 MMOL/L (20-31); CHLORIDE LEVEL 105 MMOL/L (98-107); CHOLESTEROL LEVEL 193 MG/DL (<200); CHOLESTEROL RISK RATIO 2.34 (<5); CREATININE FOR GFR 0.72 MG/DL (0.55-1.30); GLOMERULAR FILTRATION RATE > 60.0 (>58); GLUCOSE, FASTING 80 MG/DL (60-100); HDL CHOLESTEROL 82.3 MG/DL (>40); LDL CHOLESTEROL 97.1 MG/DL (<100); NON-HDL-C 110.7 MG/DL; POTASSIUM SERUM 4.2 MMOL/L (3.5-5.1); SODIUM LEVEL 141 MMOL/L (136-145); TRIGLYCERIDES LEVEL 68 MG/DL (<150)
== END ==
LOC: M PLAIMG 11:47
PROVIDERS: ATTEND Nurse Practitioner Family
DX: Z00.00 Encounter for general adult medical examination without abnormal findings (principal); M16.12 Unilateral primary osteoarthritis, left hip; M51.37 Other intervertebral disc degeneration, lumbosacral region; E55.9 Vitamin D deficiency, unspecified; E78.2 Mixed hyperlipidemia; Z13.1 Encounter for screening for diabetes mellitus; M47.816 Spondylosis without myelopathy or radiculopathy, lumbar region

== ENCOUNTER → 2024-01-07 | Outpatient (CLI) | payer BC, MEDICARE | LOC: M PLAIMG 10:09 | PROVIDERS: ATTEND Nurse Practitioner Family | DX: M54.2 Cervicalgia (principal); M25.512 Pain in left shoulder ==

== ENCOUNTER → 2024-08-14 | Outpatient (CLI) | payer BC, MEDICARE | LOC: M WHC 10:13 | PROVIDERS: ATTEND Nurse Practitioner Family | DX: Z12.31 Encounter for screening mammogram for malignant neoplasm of breast (principal) ==

== ENCOUNTER → 2025-02-06 | Outpatient (REF) | payer BC, MEDICARE ==
[~2025-02-06] MED LIST changes: -IBUP-1022 PO; +IBUP600T42 PO
[2025-02-08 14:37] LABS: HPV APTIMA Not Detected (Not Detected)
== END ==
LOC: M SFHCWAGY 13:12
PROVIDERS: ATTEND Advanced Practice Midwife
DX: Z12.4 Encounter for screening for malignant neoplasm of cervix (principal)
CPT/HCPCS: 87624; G0123